=== PATIENT | female | born 1980 | race Caucasian/White ===

== ENCOUNTER 2018-11-02 18:41 | Emergency (ER) | payer OTHER ==
[~2018-11-02] VITALS: Ht 162.6 cm; Wt 55.8 kg
--- NOTE | 2018-11-02 18:53 | NUR ---
PT IS IN BED #2A. [employer] OFFICERS ARE TALKING TO THE PT. PT's DOUGHTER AT THE BEDSIDE.
[2018-11-02] MEDS ORDERED: ONDANSETRON ODT 4 MG TAB.RAPDIS ONE (19:12)
[2018-11-02] MEDS ORDERED: HYDROCODONE/APAP 10-325 MG TABLET ONE (19:12)
[2018-11-02] MEDS ORDERED: HYDROCODONE/APAP 10-325 MG TABLET PO ONE (19:15)
[2018-11-02] MEDS ORDERED: ONDANSETRON ODT 4 MG TAB.RAPDIS SL ONE (19:15)
--- NOTE | 2018-11-02 19:38 | NUR ---
Patient transported to Radiology for lumbar xray, in stable condition.
--- NOTE | 2018-11-02 19:53 | NUR ---
Patient back in room from Radiology
[2018-11-02 21:16] VITALS: BP 135/82
--- NOTE | 2018-11-02 21:20 | NUR ---
Patient discharged to home in stable conditon WITH FAMILY TAKING PATIENT HOME. Written and verbal after care instructions given. Patient verbalizes understanding of instructions. PATIENT WHEELCHAIR TO PRIVATE VEHICLE BY STAFF MEMBER WITH NO DISTRESS NOTED
== END 2018-11-02 21:21 | disposition home or self-care (01) ==
LOC: ER 18:41
DX: M25.512 Pain in left shoulder (principal); M54.5 Low back pain; F41.9 Anxiety disorder, unspecified; V49.9XXA Car occupant (driver) (passenger) injured in unspecified traffic accident, initial encounter; Y93.89 Activity, other specified; Y92.89 Other specified places as the place of occurrence of the external cause; Y99.8 Other external cause status
CPT/HCPCS: 72110; 73030; A4663; Q0162